=== PATIENT | female | born 1945 | race Caucasian/White ===

== ENCOUNTER 2016-04-09 16:49 | Emergency (ER) | payer MEDICARE, OTHER ==
--- NOTE | 2016-04-09 19:56 | ED CLINICAL REPORT ---
Clinical Report - Physicians/Mid Levels [facility] [address] [place] [address] 04/09/2016 16:50 Patient: CL IVY Time Seen: 19:14; initial patient contact, initial documentation, patient care assumed. Arrived- By private vehicle. Historian- patient. HISTORY OF PRESENT ILLNESS Chief Complaint: FALL. Location of injuries- head. The injury occurred just prior to arrival. Fell while walking and landed on a hard surface; tripped (tripped over cord and fell into corner of wall). Occurred at home. The patient complains of mild pain. The patient sustained a moderate blow to the head. No loss of consciousness or seizure. Not dazed. REVIEW OF SYSTEMS No loss of vision, chest pain, difficulty breathing or abdominal pain. She sustained skin laceration but has no pain on weight bearing. All systems otherwise negative, except as recorded above. PAST HISTORY See nurses notes. PROBLEMS: Depression. --17:44 Xochilt Noonan R.N. Wrist Fracture [RuleOut]. Radius Fracture [RuleOut]. --17:44 Xochilt Noonan R.N. ADDITIONAL SURGERIES: no known surgeries. Tetanus immunization status is unknown. SOCIAL HISTORY Never smoker. No alcohol use or drug use. No recent travel. Is a local resident. FAMILY HISTORY No significant family medical history. ADDITIONAL NOTES The nursing notes have been reviewed with agreement regarding the chief complaint, HPI, ROS, PMH and patient medications and allergies. PHYSICAL EXAM Vital Signs: 04/09/2016 17:41 BP: 134/88. HR: 78. RR: 16. O2 saturation: 96%. Temp: 98.4 F. Have been reviewed as normal and appear to be correct. Appearance: Alert. Oriented X3. No acute distress. Head: Head tender. No swelling of head. Right jain: mild tenderness and swelling and superficial 1.0 cm laceration of the upper anterior aspect of the right jain (no active bleeding, superficial, no closure needed). No erythema, abrasion, ecchymosis, puncture wound or foreign body. No deformity. Eyes: Pupils equal, round and reactive to light. EOM intact. ENT: No dental injury. Pharynx normal. Neck: Painless ROM. Non-tender. CVS: Heart sounds normal. Pulses normal. Respiratory: Breath sounds normal. Chest nontender. Abdomen: No visible injury. Soft and nontender. Back: No tenderness. ROM normal. Skin: Skin intact. Skin warm and dry. Normal skin color. Normal skin turgor. Extremities: Normal inspection. Pelvis stable. Extremities atraumatic. No lower extremity edema. Neuro: Oriented X 3. No motor deficit. No sensory deficit. PROGRESS AND PROCEDURES Patient counseled in person regarding the patient's stable condition and diagnosis. 19:56. Differential Diagnosis: Other possible considerations: fall, sprain, head injury, lac, fx. Above considerations are based on history and physical exam. Differential diagnosis was discussed with patient. Disposition: Discharged home in good and improved condition (19:56). Condition: good and stable. CLINICAL IMPRESSION Fall on same level by tripping. Single superficial laceration to the scalp.Treatment of laceration not delayed. No infection or foreign body present. INSTRUCTIONS Protect wound and keep wound area clean. Soak in warm soapy water twice daily. Apply bacitracin twice daily. Warnings: HEAD INJURY PRECAUTIONS: An observer must check on the patient frequently for the next 24 hours to confirm that the patient responds as expected, is not confused, has no new weakness or numbness, and has no other problems. TETANUS: You were given a tetanus shot during your visit. Make a note for future reference. GENERAL WARNINGS: Return or contact your physician immediately if your condition worsens or changes unexpectedly, if not improving as expected, or if other problems arise. SPECIFICALLY, return if you develop numbness or incontinence of feces (loss of bowel control) or urine (loss of bladder control). Follow-up: Follow up with your doctor in about five days as needed and for wound check. Call for an appointment. Summary of care provided to patient. Understanding of the discharge instructions verbalized by patient. (Electronically signed by Ember Laboy A.R.N.P. 04/09/2016 21:11)
--- NOTE | 2016-04-09 19:56 | ED ORDER SUMMARY ---
..... Patient: CL IVY OrderSheet [facility] VisitID: [id number] [place] [address] 70y, F Registration Date/Time: 04/09/2016 ORDER SHEET Weight: 79.7 kg (estimated) Allergies: No Known Drug Allergy GENERAL ORDERS: Dress Wounds (19:58 04/09/2016 HBivens A.R.N.P.) (20:00 EInderbitzen R.N.) MEDICATION ORDERS: Adacel IM 0.5 mL (NOW) (18:52 04/09/2016 EInderbitzen R.N. verbal order read back to HBivens A.R.N.P.) (18:53 EInderbitzen R.N.) IV FLUIDS: ORDER SHEET NOTES: [Electronically signed by Ember LaboyRCarmenN.PCarmen (21:11 04/09/2016)] [Electronically signed by Zia Hannah R.N. (23:46 04/09/2016)] [Electronically locked/signed by Zia Hannah R.N. (23:46 04/09/2016)]
--- NOTE | 2016-04-09 19:56 | ED CLINICAL REPORT ---
Clinical Report - Physicians/Mid Levels [facility] [address] [place] [address] 04/09/2016 16:50 Patient: CL IVY Time Seen: 19:14; initial patient contact, initial documentation, patient care assumed. Arrived- By private vehicle. Historian- patient. HISTORY OF PRESENT ILLNESS Chief Complaint: FALL. Location of injuries- head. The injury occurred just prior to arrival. Fell while walking and landed on a hard surface; tripped (tripped over cord and fell into corner of wall). Occurred at home. The patient complains of mild pain. The patient sustained a moderate blow to the head. No loss of consciousness or seizure. Not dazed. REVIEW OF SYSTEMS No loss of vision, chest pain, difficulty breathing or abdominal pain. She sustained skin laceration but has no pain on weight bearing. All systems otherwise negative, except as recorded above. PAST HISTORY See nurses notes. PROBLEMS: Depression. --17:44 Xochilt Noonan R.N. Wrist Fracture [RuleOut]. Radius Fracture [RuleOut]. --17:44 Xochilt Noonan R.N. ADDITIONAL SURGERIES: no known surgeries. Tetanus immunization status is unknown. SOCIAL HISTORY Never smoker. No alcohol use or drug use. No recent travel. Is a local resident. FAMILY HISTORY No significant family medical history. ADDITIONAL NOTES The nursing notes have been reviewed with agreement regarding the chief complaint, HPI, ROS, PMH and patient medications and allergies. PHYSICAL EXAM Vital Signs: 04/09/2016 17:41 BP: 134/88. HR: 78. RR: 16. O2 saturation: 96%. Temp: 98.4 F. Have been reviewed as normal and appear to be correct. Appearance: Alert. Oriented X3. No acute distress. Head: Head tender. No swelling of head. Right amish: mild tenderness and swelling and superficial 1.0 cm laceration of the upper anterior aspect of the right amish (no active bleeding, superficial, no closure needed). No erythema, abrasion, ecchymosis, puncture wound or foreign body. No deformity. Eyes: Pupils equal, round and reactive to light. EOM intact. ENT: No dental injury. Pharynx normal. Neck: Painless ROM. Non-tender. CVS: Heart sounds normal. Pulses normal. Respiratory: Breath sounds normal. Chest nontender. Abdomen: No visible injury. Soft and nontender. Back: No tenderness. ROM normal. Skin: Skin intact. Skin warm and dry. Normal skin color. Normal skin turgor. Extremities: Normal inspection. Pelvis stable. Extremities atraumatic. No lower extremity edema. Neuro: Oriented X 3. No motor deficit. No sensory deficit. PROGRESS AND PROCEDURES Patient counseled in person regarding the patient's stable condition and diagnosis. 19:56. Differential Diagnosis: Other possible considerations: fall, sprain, head injury, lac, fx. Above considerations are based on history and physical exam. Differential diagnosis was discussed with patient. Disposition: Discharged home in good and improved condition (19:56). Condition: good and stable. CLINICAL IMPRESSION Fall on same level by tripping. Single superficial laceration to the scalp.Treatment of laceration not delayed. No infection or foreign body present. INSTRUCTIONS Protect wound and keep wound area clean. Soak in warm soapy water twice daily. Apply bacitracin twice daily. Warnings: HEAD INJURY PRECAUTIONS: An observer must check on the patient frequently for the next 24 hours to confirm that the patient responds as expected, is not confused, has no new weakness or numbness, and has no other problems. TETANUS: You were given a tetanus shot during your visit. Make a note for future reference. GENERAL WARNINGS: Return or contact your physician immediately if your condition worsens or changes unexpectedly, if not improving as expected, or if other problems arise. SPECIFICALLY, return if you develop numbness or incontinence of feces (loss of bowel control) or urine (loss of bladder control). Follow-up: Follow up with your doctor in about five days as needed and for wound check. Call for an appointment. Summary of care provided to patient. Understanding of the discharge instructions verbalized by patient. (Electronically signed by Ember Laboy A.R.N.P. 04/09/2016 21:11)
--- NOTE | 2016-04-09 19:56 | ED NURSING NOTES ---
Clinical Report - Nurses [facility] [address] [place] [address] 04/09/2016 16:50 [id number] Triage time 17:41. Acuity: LEVEL 1. Chief Complaint: FALL (got tangled in cord and fell forward striking head on sharp edge). Alert. No acute distress. NIKI COMA SCORE: Niki Coma Scale: 15- eyes open spontaneously (4); best verbal response- oriented x 4 (5); best motor response- obeys commands (6). --17:55 Xochilt Noonan R.N. 17:41 04/09/16. BP: 134/88. HR: 78. RR: 16. O2 saturation: 96%. Temp: 98.4 F (oral). Pain level now: cannot qualify. --17:55 Xochilt Noonan R.N. Height/Length: 68 inches Per Patient. --17:48 Xochilt Noonan R.N.. Weight: 79.7 kg estimated. BMI: 26.7. --17:57 Xochilt Noonan R.N. Medications CeleXA Oral (Tablet 20 mg) 1 tablet, daily. Wellbutrin Oral 300mg, daily. --17:43 Xochilt Noonan R.N. Medication/allergy information source: the patient. --17:55 Xochilt Noonan R.N. Allergies No Known Drug Allergy. --17:43 Xochilt Noonan R.N. History Arrived by private vehicle. Historian: patient. Accompanied by family. Primary physician (Katie). Location of injuries: head. This occurred just prior to arrival. ( son thinks she is "noticably off", has c/o nausea). No loss of consciousness. PAST MEDICAL HX: Tetanus status: unknown. SOCIAL HX: Smoker- current status unknown (no). No alcohol use or drug use. FALL RISK ASSESSMENT: Fall risk assessment completed. No fall risk identified. FUNCTIONAL ASSESSMENT: Functional assessment: no impairments noted. LEARNING NEEDS ASSESSMENT: The learning needs assessment revealed no barriers. --17:55 Xochilt Noonan R.N. PROBLEMS: Depression. --17:44 Xochilt Noonan R.N. Wrist Fracture [RuleOut]. Radius Fracture [RuleOut]. --17:44 Xochilt Noonan R.N. ADDITIONAL SURGERIES: no known surgeries. Assessment GENERAL / NEURO / PSYCH: Alert. Oriented X 4. Appears in no acute distress. Patient appears calm and cooperative. ( bleeding from head wound controlled). RESPIRATORY: Respirations not labored. SKIN: Skin is warm and dry. --17:55 Xochilt Noonan R.N. Interventions ID band on patient. To waiting room. --17:55 Xochilt Noonan R.N. PHYSICAL ASSESSMENT 18:45 04/09/16. Ambulatory to room. GENERAL / NEURO / PSYCH: Alert. Oriented X 4. Appears in no acute distress. HEENT: Pupils equal, round and reactive to light. Head: tenderness and swelling present (DRIED BLOOD ON RIGHT PARIETAL AREA). RESPIRATORY: Respirations not labored. CVS: Pulses within normal limits. GI / : Abdomen soft. EXTREMITIES: Extremities exhibit normal ROM. Neuro-vascular status intact to the extremity. SKIN: Skin is warm and dry. --18:56 Lacy Jimenez R.N. Ambulatory to room. GENERAL / NEURO / PSYCH: Alert. Oriented X 4. Appears in pain. HEENT: Pupils equal, round and reactive to light. Head non-tender. RESPIRATORY: Respirations not labored. Breath sounds within normal limits. CVS: Normal heart rate and rhythm. Pulses within normal limits. GI / : Abdomen soft. EXTREMITIES: Extremities exhibit normal ROM. Neuro-vascular status intact to the extremity. SKIN: Skin is warm and dry. Abrasions noted. --20:32 Zia Hannah R.N. NURSING PROGRESS NOTES 17:55 son upset about the wait and may "take her somewhere else". Cold pack applied (given in triage). --17:56 Xochilt Noonan R.N. 18:39 04/09/16. Two patient identifiers checked. Call light placed in reach. Side rails up x 1. Bed placed in lowest position. Brakes of bed on. --18:47 Lacy Jimenez R.N. 18:39 04/09/16. ( Brought to room 5, ready for exam). --18:39 Lacy Jimenez R.N. 18:51 04/09/2016 Adacel IM 0.5 mL given. (Lot#: [id number], expiration date: 12/30/2017, Costume Specialist: sanofi pasteur). Given in the left deltoid. Allergies verified and confirmed 5 rights. Vaccine information statement provided to the patient. --18:53 Lacy Jimenez R.N. Wound cleansed with sterile saline and chlorhexidine (EZ scrub). --19:30 NatalioMayda 20:06 04/09/16. ( bacitracin applied to head lac). --20:06 Lacy Jimenez R.N. <<STRICKEN ENTRY-- Patient gowned. Reassurance given to the patient and patient's family. Patient identifiers checked. Call light placed in reach. Side rails up. Bed placed in lowest position. Brakes of bed on. Patient ready for evaluation- chart flagged and ED physician and AUTOMATIC BUFFING WHEEL FORMER notified. --20:33 Zia Hannah R.N. --END STRIKE>> Charted On Wrong Patient --20:38 Zia Hannah R.N. DISPOSITION / DISCHARGE Departure time: 2009. --20:28 Zia Hannah R.N. 20:05 04/09/16. BP: 125/80. HR: 84. RR: 16. O2 saturation: 97%. Temp: 98 F (oral). Pain level now: 04/13. --20:29 Zia Hannah R.N. 20:10. Condition at departure: improved. No learning barriers present. Discharge instructions provided and reviewed with the patient. Reviewed wound care instructions. Reviewed referral to family practice for followup. Patient and family verbalized understanding. Written instructions provided in Andorran. The patient was discharged by the physician. She was discharged home and accompanied by family. She left the Emergency Department ambulatory and via private vehicle. Family member driving. --20:40 Zia Hannah R.N. Locked/Released at 04/09/2016 23:46 by Zia Hannah R.N.
--- NOTE | 2016-04-09 19:56 | ED NURSING NOTES ---
Clinical Report - Nurses [facility] [address] [place] [address] 04/09/2016 16:50 [id number] Triage time 17:41. Acuity: LEVEL 1. Chief Complaint: FALL (got tangled in cord and fell forward striking head on sharp edge). Alert. No acute distress. NIKI COMA SCORE: Niki Coma Scale: 15- eyes open spontaneously (4); best verbal response- oriented x 4 (5); best motor response- obeys commands (6). --17:55 Xochilt Noonan R.N. 17:41 04/09/16. BP: 134/88. HR: 78. RR: 16. O2 saturation: 96%. Temp: 98.4 F (oral). Pain level now: cannot qualify. --17:55 Xochilt Noonan R.N. Height/Length: 68 inches Per Patient. --17:48 Xochilt Noonan R.N.. Weight: 79.7 kg estimated. BMI: 26.7. --17:57 Xochilt Noonan R.N. Medications CeleXA Oral (Tablet 20 mg) 1 tablet, daily. Wellbutrin Oral 300mg, daily. --17:43 Xochilt Noonan R.N. Medication/allergy information source: the patient. --17:55 Xochilt Noonan R.N. Allergies No Known Drug Allergy. --17:43 Xochilt Noonan R.N. History Arrived by private vehicle. Historian: patient. Accompanied by family. Primary physician (Katie). Location of injuries: head. This occurred just prior to arrival. ( son thinks she is "noticably off", has c/o nausea). No loss of consciousness. PAST MEDICAL HX: Tetanus status: unknown. SOCIAL HX: Smoker- current status unknown (no). No alcohol use or drug use. FALL RISK ASSESSMENT: Fall risk assessment completed. No fall risk identified. FUNCTIONAL ASSESSMENT: Functional assessment: no impairments noted. LEARNING NEEDS ASSESSMENT: The learning needs assessment revealed no barriers. --17:55 Xochilt Noonan R.N. PROBLEMS: Depression. --17:44 Xochilt Noonan R.N. Wrist Fracture [RuleOut]. Radius Fracture [RuleOut]. --17:44 Xochilt Noonan R.N. ADDITIONAL SURGERIES: no known surgeries. Assessment GENERAL / NEURO / PSYCH: Alert. Oriented X 4. Appears in no acute distress. Patient appears calm and cooperative. ( bleeding from head wound controlled). RESPIRATORY: Respirations not labored. SKIN: Skin is warm and dry. --17:55 Xochilt Noonan R.N. Interventions ID band on patient. To waiting room. --17:55 Xochilt Noonan R.N. PHYSICAL ASSESSMENT 18:45 04/09/16. Ambulatory to room. GENERAL / NEURO / PSYCH: Alert. Oriented X 4. Appears in no acute distress. HEENT: Pupils equal, round and reactive to light. Head: tenderness and swelling present (DRIED BLOOD ON RIGHT PARIETAL AREA). RESPIRATORY: Respirations not labored. CVS: Pulses within normal limits. GI / : Abdomen soft. EXTREMITIES: Extremities exhibit normal ROM. Neuro-vascular status intact to the extremity. SKIN: Skin is warm and dry. --18:56 Lacy Jimenez R.N. Ambulatory to room. GENERAL / NEURO / PSYCH: Alert. Oriented X 4. Appears in pain. HEENT: Pupils equal, round and reactive to light. Head non-tender. RESPIRATORY: Respirations not labored. Breath sounds within normal limits. CVS: Normal heart rate and rhythm. Pulses within normal limits. GI / : Abdomen soft. EXTREMITIES: Extremities exhibit normal ROM. Neuro-vascular status intact to the extremity. SKIN: Skin is warm and dry. Abrasions noted. --20:32 Zia Hannah R.N. NURSING PROGRESS NOTES 17:55 son upset about the wait and may "take her somewhere else". Cold pack applied (given in triage). --17:56 Xochilt Noonan R.N. 18:39 04/09/16. Two patient identifiers checked. Call light placed in reach. Side rails up x 1. Bed placed in lowest position. Brakes of bed on. --18:47 Lacy Jimenez R.N. 18:39 04/09/16. ( Brought to room 5, ready for exam). --18:39 Lacy Jimenez R.N. 18:51 04/09/2016 Adacel IM 0.5 mL given. (Lot#: [id number], expiration date: 12/30/2017, Cook Candy: sanofi pasteur). Given in the left deltoid. Allergies verified and confirmed 5 rights. Vaccine information statement provided to the patient. --18:53 Lacy Jimenez R.N. Wound cleansed with sterile saline and chlorhexidine (EZ scrub). --19:30 NatalioMayda 20:06 04/09/16. ( bacitracin applied to head lac). --20:06 Lacy Jimenez R.N. <<STRICKEN ENTRY-- Patient gowned. Reassurance given to the patient and patient's family. Patient identifiers checked. Call light placed in reach. Side rails up. Bed placed in lowest position. Brakes of bed on. Patient ready for evaluation- chart flagged and ED physician and INSPECTOR GENERAL notified. --20:33 Zia Hannah R.N. --END STRIKE>> Charted On Wrong Patient --20:38 Zia Hannah R.N. DISPOSITION / DISCHARGE Departure time: 2009. --20:28 Zia Hannah R.N. 20:05 04/09/16. BP: 125/80. HR: 84. RR: 16. O2 saturation: 97%. Temp: 98 F (oral). Pain level now: 04/13. --20:29 Zia Hannah R.N. 20:10. Condition at departure: improved. No learning barriers present. Discharge instructions provided and reviewed with the patient. Reviewed wound care instructions. Reviewed referral to family practice for followup. Patient and family verbalized understanding. Written instructions provided in Romanian. The patient was discharged by the physician. She was discharged home and accompanied by family. She left the Emergency Department ambulatory and via private vehicle. Family member driving. --20:40 Zia Hannah R.N. Locked/Released at 04/09/2016 23:46 by Zia Hannah R.N.
--- NOTE | 2016-04-09 19:56 | ED ORDER SUMMARY ---
..... Patient: CL IVY OrderSheet [facility] VisitID: [id number] [place] [address] 70y, F Registration Date/Time: 04/09/2016 ORDER SHEET Weight: 79.7 kg (estimated) Allergies: No Known Drug Allergy GENERAL ORDERS: Dress Wounds (19:58 04/09/2016 HBivens A.R.N.P.) (20:00 EInderbitzen R.N.) MEDICATION ORDERS: Adacel IM 0.5 mL (NOW) (18:52 04/09/2016 EInderbitzen R.N. verbal order read back to HBivens A.R.N.P.) (18:53 EInderbitzen R.N.) IV FLUIDS: ORDER SHEET NOTES: [Electronically signed by Ember LaboyRCarmenN.PCarmen (21:11 04/09/2016)] [Electronically signed by Zia Hannah R.N. (23:46 04/09/2016)] [Electronically locked/signed by Zia Hannah R.N. (23:46 04/09/2016)]
--- NOTE | 2016-04-09 23:46 | ED MAR SUMMARY ---
..... Medication Administration Record [facility] [address] [place] [address] Patient: CL IVY Visit ID: [id number] 70y, F Weight: 79.7 kg Height/Length: 68 in BMI: 26.7 ALLERGIES: No Known Drug Allergy Given 18:51 04/09/2016 Lacy Jimenez R.N. Medication Administered: ADACEL [IM], Dose: 0.5 mL IM. Medication Ordered: Adacel IM 0.5 mL (NOW).
--- NOTE | 2016-04-09 23:46 | ED MED RECONCILIATION SUMMARY ---
Patient: CL IVY Medication Reconciliation Report [facility] VisitID: [id number] [address] [place] [address] 70y, F Registration Date/Time: 04/09/2016 Weight: 79.7 kg Height/Length: 68 in. BMI: 26.7 ALLERGIES: No Known Drug Allergy The patient's Home Medications are listed below: THE FOLLOWING MEDICATIONS NEED TO BE RECONCILED: CeleXA Oral (20 mg) 1 tablet, daily Wellbutrin Oral 300mg, daily The source(s) of the original Home Medication information: patient The following Medications were given to the patient in the Emergency Department: Adacel [IM] IM 0.5 mL, administered: 04/09/2016 6:51:00 PM The following Medications were prescribed to the patient: None.
--- NOTE | 2016-04-09 23:46 | ED MED RECONCILIATION SUMMARY ---
Patient: CL IVY Medication Reconciliation Report [facility] VisitID: [id number] [address] [place] [address] 70y, F Registration Date/Time: 04/09/2016 Weight: 79.7 kg Height/Length: 68 in. BMI: 26.7 ALLERGIES: No Known Drug Allergy The patient's Home Medications are listed below: THE FOLLOWING MEDICATIONS NEED TO BE RECONCILED: CeleXA Oral (20 mg) 1 tablet, daily Wellbutrin Oral 300mg, daily The source(s) of the original Home Medication information: patient The following Medications were given to the patient in the Emergency Department: Adacel [IM] IM 0.5 mL, administered: 04/09/2016 6:51:00 PM The following Medications were prescribed to the patient: None.
--- NOTE | 2016-04-09 23:46 | ED DISCHARGE INSTRUCTIONS ---
Patient: CL IVY General Instructions [facility] VisitID: [id number] [place] [address] 70y, F Registration Date/Time: 04/09/2016 Fall on same level by tripping. Single superficial laceration to the scalp.Treatment of laceration not delayed. No infection or foreign body present. INSTRUCTIONS Protect wound and keep wound area clean. Soak in warm soapy water twice daily. Apply bacitracin twice daily. Warnings: HEAD INJURY PRECAUTIONS: An observer must check on the patient frequently for the next 24 hours to confirm that the patient responds as expected, is not confused, has no new weakness or numbness, and has no other problems. TETANUS: You were given a tetanus shot during your visit. Make a note for future reference. GENERAL WARNINGS: Return or contact your physician immediately if your condition worsens or changes unexpectedly, if not improving as expected, or if other problems arise. SPECIFICALLY, return if you develop numbness or incontinence of feces (loss of bowel control) or urine (loss of bladder control). Follow-up: Follow up with your doctor in about five days as needed and for wound check. Call for an appointment. Summary of care provided to patient. Understanding of the discharge instructions verbalized by patient. ADDITIONAL INFORMATION Mechanical Fall You have had a fall today. It appears that the cause is mechanical. That means that you slipped, tripped or lost your balance. If your fall had been due to fainting or a seizure, further tests would be required. Home Care: Rest today and resume your normal activities when you are feeling back to normal. If you were injured during the fall, follow the advice from your doctor regarding care of your injury. You may use acetaminophen (Tylenol) or ibuprofen (Motrin, Advil) to control pain, unless another pain medicine was prescribed. [NOTE: If you have chronic liver or kidney disease or ever had a stomach ulcer or GI bleeding, talk with your doctor before using these medicines.] Fall Prevention: Was there anything that caused your fall that can be fixed, removed, or replaced? Make your home safe by keeping walkways clear of objects you may trip over. Use non-slip pads under rugs. Do not walk in poorly lit areas. Do not stand on chairs or wobbly ladders. Use caution when reaching overhead or looking upward. This position can cause a loss of balance. Be sure your shoes fit properly, have non-slip bottoms and are in good condition. Be cautious when going up and down curbs, and walking on uneven sidewalks. If your balance is poor, consider using a cane or walker. Stay as active as you can. Balance, flexibility, strength, and endurance all come from exercise. They all play a role in preventing falls. Follow Up with your doctor or as advised by our staff. Get Prompt Medical Attention if any of the following occur: Repeated mechanical falls, or unexplained falls Dizziness, fainting or seizure Severe headache Chest pain or shortness of breath Palpitations (very rapid or very slow or irregular heartbeat) Blood in vomit, stools (black or red color) Weakness of an arm or leg or one side of the face Difficulty with speech or vision Laceration, Scalp (Sutures Or [place]) A laceration is a cut through the skin. This will require stitches (sutures) or brien if it is deep. Home care The following guidelines will help you care for your laceration at home: During the first two days you may carefully rinse your hair in the shower to remove blood, glass or dirt particles. After two days you may shower and shampoo your hair normally. Have someone help you clean your wound every day: In the shower, wash the area with soap and water. Use a wet cotton swab to loosen and remove any blood or crust that forms. After cleaning, keep the wound clean and dry. Talk with your doctor before applying any antibiotic ointment to the wound. Reapply a fresh bandage. Do not put your head under water (no swimming) until the stitches or brien have been removed. The doctor may prescribe an antibiotic cream or ointment to prevent infection. Do not stop taking this medication until you have finished the prescribed course or the doctor tells you to stop. The doctor may also prescribe medications for pain. Follow the doctors instructions for taking these medications. If you have chronic liver or kidney disease or ever had a stomach ulcer or GI bleeding, talk with your doctor before using these medicines. Follow-up care Follow up with your health care provider. Most scalp wounds heal within seven days. However, an infection can sometimes occur. Check the wound daily for the warning signs listed below. Stitches or brien should be removed from the scalp in about 57 days. When to seek medical care Get prompt medical attention if any of these occur: Increasing pain in the wound Redness, swelling, or pus coming from the wound Fever of 100.4F (38C) or higher, or as directed by your health care provider If stitches or brien come apart or fall out before your next appointment If the wound edges re-open Bleeding not controlled by direct pressure Head Injury, No Wake-Up (Adult) You have had a head injury. It does not appear serious at this time. Symptoms of a more serious problem (concussion, bruising, or bleeding in the brain) may appear later. Therefore, watch for the WARNING SIGNS listed below. Home Care: Your healthcare provider will tell you whether its okay to drive. If so, you can drive yourself home. For the next day or so, be careful when driving or using heavy machinery until you are sure you have no delayed symptoms. During the next 24 hours someone must stay with you to check for the signs below. It is not necessary to stay awake or be awakened during the night. If you have swelling of the face or scalp, apply an ice pack (ice cubes in a plastic bag, wrapped in a towel) for 20 minutes. Do this every 1-2 hours until the swelling starts to go down. Do not use aspirin or ibuprofen (Motrin, Advil) after a head injury.You may use acetaminophen (Tylenol)to control pain, unless another pain medicine was prescribed. [NOTE: If you have chronic liver or kidney disease or ever had a stomach ulcer or GI bleeding, talk with your doctor before using these medicines.] For the next 24 hours: Do not take alcohol, sedatives or medicines that make you sleepy. Avoid strenuous activities. No lifting or straining. If you have had any symptoms of a concussion today (nausea, vomiting, dizziness, confusion, headache, memory loss or if you were knocked out), do not return to sports or any activity that could result in another head injury until all symptoms are gone and you have been cleared by your doctor. A second head injury before fully recovering from the first one can lead to serious brain injury. Follow Up with your doctor if symptoms are not improving after 24 hours, or as directed. [NOTE: A radiologist will review any X-rays or CT scans that were taken. We will notify you of any new findings that may affect your care.] Get Prompt Medical Attention if any of the followingWARNING SIGNS occur: Repeated vomiting Severe or worsening headache or dizziness Unusual drowsiness, or unable to awaken as usual Confusion or change in behavior or speech, memory loss, blurred vision Convulsion (seizure) Increasing scalp or face swelling Redness, warmth or pus from the swollen area Fluid drainage or bleeding from the nose or ears Diphtheria Toxoid Adsorbed, Tetanus Toxoid, Adsorbed Suspension for injection What is this medicine? DIPHTHERIA AND TETANUS TOXOIDS ADSORBED (dif THEER ee uh and TET n us TOK soids ad SAWRB) is a vaccine. It is used to prevent infections of diphtheria and tetanus (anurag). How should I use this medicine? This vaccine is for injection into a muscle. It is given by a [facility] urgent care. A copy of Vaccine Information Statements will be given before each vaccination. Read this sheet carefully each time. The sheet may change frequently. Talk to your traffic court referee regarding the use of this medicine in children. While this drug may be prescribed for selected conditions, precautions do apply. What side effects may I notice from receiving this medicine? Side effects that you should report to your doctor or [facility] as soon as possible: allergic reactions like skin rash, itching or hives, swelling of the face, lips, or tongue arthritis pain breathing problems changes in hearing extreme changes in behavior fast, irregular heartbeat fever over 100 degrees F pain, tingling, numbness in the hands or feet seizures unusually weak or tired Side effects that usually do not require medical attention (report to your doctor or [facility] care if they continue or are bothersome): aches or pains bruising, pain, swelling at site where injected headache loss of appetite low-grade fever of 100 degrees F or less nausea, vomiting sleepy swollen glands What may interact with this medicine? adalimumab anakinra infliximab live vaccines medicines that suppress your immune system medicines to treat cancer medicines that treat or prevent blood clots like daily aspirin, enoxaparin, heparin, ticlopidine, warfarin radiopharmaceuticals like iodine I-125 or I-131 What if I miss a dose? Keep appointments for follow-up (booster) doses as directed. It is important not to miss your dose. Call your doctor or [facility] if you are unable to keep an appointment. Where should I keep my medicine? This drug is given in a hospital or clinic and will not be stored at home. What should I tell my health care provider before I take this medicine? They need to know if you have any of these conditions: bleeding disorder immune system problems infection with fever low levels of platelets in the blood an unusual or allergic reaction to diphtheria or tetanus toxoid, latex, thimerosal, other medicines, foods, dyes, or preservatives or trying to get breast-feeding What should I watch for while using this medicine? Contact your doctor or [facility] and seek emergency medical care if any serious side effects occur. This vaccine, like all vaccines, may not fully protect everyone. You have been given the following additional information: Fall, Mechanical Laceration, Scalp HEAD INJURY, No Wake-Up (Adult) Diphtheria Toxoid Adsorbed, Tetanus Toxoid, Adsorbed Suspension for injection (Electronically signed by Ember Laboy A.R.N.P. 04/09/2016 21:11)
--- NOTE | 2016-04-09 23:46 | ED MAR SUMMARY ---
..... Medication Administration Record [facility] [address] [place] [address] Patient: CL IVY Visit ID: [id number] 70y, F Weight: 79.7 kg Height/Length: 68 in BMI: 26.7 ALLERGIES: No Known Drug Allergy Given 18:51 04/09/2016 Lacy Jimenez R.N. Medication Administered: ADACEL [IM], Dose: 0.5 mL IM. Medication Ordered: Adacel IM 0.5 mL (NOW).
== END 2016-04-09 20:10 | disposition home or self-care (01) ==
LOC: ED SRH 16:49
DX: S01.01XA Laceration without foreign body of scalp, initial encounter (principal); W01.118A Fall on same level from slipping, tripping and stumbling with subsequent striking against other sharp object, initial encounter; Y93.01 Activity, walking, marching and hiking; Y92.009 Unspecified place in unspecified non-institutional (private) residence as the place of occurrence of the external cause; Y99.8 Other external cause status; Z79.899 Other long term (current) drug therapy